=== PATIENT | female | born 1950 | race Caucasian/White ===

== ENCOUNTER 2017-10-13 11:55 | Emergency (ER) | payer BC, MEDICARE ==
[~2017-10-13] VITALS: Ht 167.6 cm; Wt 111.1 kg
[2017-10-13] MEDS ORDERED: ALBUTEROL/IPRATROPIUM 3 ML NEB NEB ONE (12:15)
--- NOTE | 2017-10-13 12:20 | ER Report ---
History and Physical Time Seen By MD: 12:00 Hx. of Stated Complaint: SHORT OF BREATH FOR 1 MONTH. VISITING FROM [place] HPI/ROS CHIEF COMPLAINT: Cough, shortness of breath HISTORY OF PRESENT ILLNESS: 67-year-old female patient presents to the emergency room with complaint of cough, shortness of breath. Patient states this been going on for the last 3 days. Patient states that she is visiting from [place] and has been here approximately one month. She states that she has not been employed down but has to be propped up on some pills. She states when she lays down she has significant amounts of wheezing in her chest. She denies having any fevers, chills, nausea, vomiting or diarrhea. Patient states that her nephew was ill for approximately one week with a cold and now her brother and her come down the same thing. She states that she is taken some NyQuil for that, however she vomited up. She did take some ibuprofen this morning. REVIEW OF SYSTEMS: Respiratory: As noted above Cardiovascular: No chest pain, no palpitations. Gastrointestinal: No vomiting, no abdominal pain. Musculoskeletal: No back pain. Allergies: Coded Allergies: No Known Drug Allergies (Unverified , 10/13/17) Home Meds Active Scripts Acetic Acid/Hydrocortisone (HYDROCORTISON-ACETIC ACID SOLN) 10 Ml Drops, 5 GTT OT Q6H, #1 BOTTLE Prov:DORIAN REIS 10/13/17 Albuterol Sulfate (VENTOLIN HFA) 18 Gm Inh, 2 PUFF INH Q4-6H Y for SHORTNESS OF BREATH, #1 INH Prov:DORIAN REIS 10/13/17 Prednisone (PREDNISONE) 20 Mg Tablet, 20 MG PO BID, #10 TAB Prov:DORIAN REIS 10/13/17 Azithromycin 250 Mg Tab (AZITHROMYCIN 250 MG TAB) 250 Mg Tablet, 1 TAB PO QDAY, #6 TAB Take 2 tabs today and then 1 tab a day until gone. Prov:DORIAN REIS 10/13/17 Past Medical/Surgical History Patient has a past medical history of asthma, shoulder fracture. Patient has surgical history of right shoulder surgery. Reviewed Nurses Notes: Yes Constitutional Vital Sign - Last 24 Hours 10/13/17 10/13/17 10/13/17 10/13/17 12:00 12:05 12:18 12:18 Temp 98.5 Pulse 100 84 Resp 20 19 B/P (MAP) 171/76 Pulse Ox 90 93 O2 Delivery Room Air Nasal Cannula O2 Flow Rate 1.0 1.0 10/13/17 13:56 Pulse 73 B/P (MAP) 137/60 (85) Pulse Ox 94 O2 Delivery Room Air Physical Exam General Appearance: The patient is alert, has no immediate need for airway protection and no current signs of toxicity.. Respiratory: Chest is non tender, lungs are diminished to auscultation. Cardiac: regular rate and rhythm Gastrointestinal: Abdomen is soft and non tender, no masses, bowel sounds normal. Musculoskeletal: Neck: Neck is supple and non tender. Extremities have full range of motion and are non tender. Skin: No rashes or lesions. DIFFERENTIAL DIAGNOSIS: After history and physical exam differential diagnosis was considered for shortness of breath including but not limited to pulmonary infectious process, COPD, asthma, pulmonary embolus and congestive heart failure. Medical Decision Making Data Points Result Diagram: 10/13/17 1220 10/13/17 1220 Laboratory Hematology Test 10/13/17 12:20 10/13/17 12:24 Red Blood Count 4.85 M/uL (4.17-5.56) Mean Corpuscular Volume 99.6 fL (80.0-96.0) Mean Corpuscular Hemoglobin 34.0 pg (26.0-33.0) Mean Corpuscular Hemoglobin Concent 34.2 g/dL (32.0-36.0) Red Cell Distribution Width 13.5 % (11.5-14.5) Mean Platelet Volume 7.5 fL (7.2-11.1) Neutrophils (%) (Auto) 70.5 % (39.4-72.5) Lymphocytes (%) (Auto) 17.4 % (17.6-49.6) Monocytes (%) (Auto) 6.2 % (4.1-12.4) Eosinophils (%) (Auto) 4.8 % (0.4-6.7) Basophils (%) (Auto) 1.1 % (0.3-1.4) Nucleated RBC Relative Count (auto) 0.0 /100WBC Neutrophils # (Auto) 5.1 K/uL (2.0-7.4) Lymphocytes # (Auto) 1.2 K/uL (1.3-3.6) Monocytes # (Auto) 0.4 K/uL (0.3-1.0) Eosinophils # (Auto) 0.3 K/uL (0.0-0.5) Basophils # (Auto) 0.1 K/uL (0.0-0.1) Nucleated RBC Absolute Count (auto) 0.00 K/uL Sodium Level 138 mmol/L (137-145) Potassium Level 4.3 mmol/L (3.5-5.0) Chloride Level 102 mmol/L (98-107) Carbon Dioxide Level 27 mmol/L (22-31) Blood Urea Nitrogen 9 mg/dl (7-18) Creatinine 0.80 mg/dl (0.52-1.04) Glomerular Filtration Rate Calc > 60.0 Random Glucose 107 mg/dl (75-110) Calcium Level 9.3 mg/dl (8.4-10.2) Total Bilirubin 1.2 mg/dl (0.2-1.3) Aspartate Amino Transf (AST/SGOT) 23 U/L (0-35) Alanine Aminotransferase (ALT/SGPT) 40 U/L (0-56) Alkaline Phosphatase 131 U/L (0-126) Troponin I 0.021 ng/ml Total Protein 7.6 gm/dl (6.3-8.2) Albumin 4.1 g/dl (3.5-5.0) Influenza Type A Antigen Negative (NEGATIVE) Influenza Type B Antigen Negative (NEGATIVE) Chemistry Test 10/13/17 12:20 10/13/17 12:24 White Blood Count 7.2 k/uL (4.5-11.0) Red Blood Count 4.85 M/uL (4.17-5.56) Hemoglobin 16.5 g/dL (12.0-16.0) Hematocrit 48.3 % (34.0-47.0) Mean Corpuscular Volume 99.6 fL (80.0-96.0) Mean Corpuscular Hemoglobin 34.0 pg (26.0-33.0) Mean Corpuscular Hemoglobin Concent 34.2 g/dL (32.0-36.0) Red Cell Distribution Width 13.5 % (11.5-14.5) Platelet Count 303 K/uL (150-450) Mean Platelet Volume 7.5 fL (7.2-11.1) Neutrophils (%) (Auto) 70.5 % (39.4-72.5) Lymphocytes (%) (Auto) 17.4 % (17.6-49.6) Monocytes (%) (Auto) 6.2 % (4.1-12.4) Eosinophils (%) (Auto) 4.8 % (0.4-6.7) Basophils (%) (Auto) 1.1 % (0.3-1.4) Nucleated RBC Relative Count (auto) 0.0 /100WBC Neutrophils # (Auto) 5.1 K/uL (2.0-7.4) Lymphocytes # (Auto) 1.2 K/uL (1.3-3.6) Monocytes # (Auto) 0.4 K/uL (0.3-1.0) Eosinophils # (Auto) 0.3 K/uL (0.0-0.5) Basophils # (Auto) 0.1 K/uL (0.0-0.1) Nucleated RBC Absolute Count (auto) 0.00 K/uL Glomerular Filtration Rate Calc > 60.0 Calcium Level 9.3 mg/dl (8.4-10.2) Total Bilirubin 1.2 mg/dl (0.2-1.3) Aspartate Amino Transf (AST/SGOT) 23 U/L (0-35) Alanine Aminotransferase (ALT/SGPT) 40 U/L (0-56) Alkaline Phosphatase 131 U/L (0-126) Troponin I 0.021 ng/ml Total Protein 7.6 gm/dl (6.3-8.2) Albumin 4.1 g/dl (3.5-5.0) Influenza Type A Antigen Negative (NEGATIVE) Influenza Type B Antigen Negative (NEGATIVE) EKG/Imaging EKG Interpretation 12 lead EKG: Rhythm: normal sinus rhythm [place]: normal QRS: normal ST segments: normal Prolonged QT of 410 ms Imaging CHEST PA AND LAT HISTORY: Respiratory distress COMPARISON: None FINDINGS: Cardiomediastinal contours: Normal Lungs and pleura: Normal Bones/soft tissues: Normal Other findings: None significant IMPRESSION: 1. Normal chest Report Dictated By: Ponce Albert MD at 10/13/2017 1:33 PM Report E-Signed By: Ponce Albert MD at 10/13/2017 1:34 PM ED Course/Re-evaluation ED Course Patient was managed exam room, history and physical were obtained. Differential diagnoses were considered. On examination patient has diminished lung sounds. A CBC, CMP, EKG, troponin, chest x-ray were done. Patient had a normal EKG, troponin was negative, CBC was unremarkable, CMP was also unremarkable. Patient did receive a DuoNeb here in the emergency room which significantly improved her breathing. Patient was 86% on room air when arriving here to the emergency room. However after the DuoNeb she was up to 95% on room air. Patient states she does have some difficulty with exercise causing wheezing as well with alcohol consumption. I believe that she likely having a worsening of her reactive airway disease caused by a viral syndrome. I discussed with patient. We 'll go ahead and put her on prednisone as well as albuterol inhaler. Due to the steroid I will go ahead and place her on azithromycin in case there is a underlying infection. I discussed with patient who verbalized understanding and agreement with plan. Decision to Disposition Date: Oct 13, 2017 Decision to Disposition Time: 13:57 Depart Departure Latest Vital Signs Vital Signs Date Time Temp Pulse Resp B/P (MAP) Pulse Ox O2 Delivery O2 Flow Rate FiO2 10/13/17 13:56 73 137/60 (85) 94 Room Air 10/13/17 12:18 1.0 10/13/17 12:18 19 10/13/17 12:00 98.5 Impression: Primary Impression: Viral syndrome Additional Impression: Otitis externa, acute noninfectious Condition: Improved Disposition: HOME OR SELF-CARE New Scripts Acetic Acid/Hydrocortisone (HYDROCORTISON-ACETIC ACID SOLN) 10 Ml Drops 5 GTT OT Q6H, #1 BOTTLE Prov: DORIAN REIS 10/13/17 Albuterol Sulfate (VENTOLIN HFA) 18 Gm Inh 2 PUFF INH Q4-6H Y for SHORTNESS OF BREATH, #1 INH Prov: DORIAN REIS 10/13/17 Prednisone (PREDNISONE) 20 Mg Tablet 20 MG PO BID, #10 TAB Prov: DORIAN REIS 10/13/17 Azithromycin 250 Mg Tab (AZITHROMYCIN 250 MG TAB) 250 Mg Tablet 1 TAB PO QDAY, #6 TAB Take 2 tabs today and then 1 tab a day until gone. Prov: DORIAN REIS 10/13/17 Patient Instructions: Viral Syndrome (ED) Additional Instructions: Increase fluid intake. Get plenty of rest. Follow up with a primary care provider in the next week. Return to the ER if condition worsens. Take Tylenol or Ibuprofen as needed for pain or fevers. Problem Qualifiers Additional Impression: Otitis externa, acute noninfectious Noninfectious otitis externa type: unspecified noninfectious type Laterality : left Qualified Codes: H60.502 - Unspecified acute noninfective otitis externa, left ear DORIAN REIS Oct 13, 2017 12:20
--- NOTE | 2017-10-13 12:26 | EKG ---
FACILITY: [facility] - [place] PATIENT NAME: GRACIELA CHAUDHARY : [id number] MR: [id number] V: [id number] EXAM DATE: ORDERING PHYSICIAN: DORIAN REIS TECHNOLOGIST: VIJI Cuenca Reason : RESP Blood Pressure : / mmHG Vent. Rate : 089 BPM Atrial Rate : 089 BPM P-R Int : 146 ms QRS Dur : 082 ms QT Int : 410 ms P-R-T Axes : 072 074 077 degrees QTc Int : 498 ms Sinus rhythm Possible left atrial enlargement Prolonged QT Abnormal ECG Baseline artifact in several leads - repeat if needed No previous ECGs available Confirmed by SHAWN COLLAZO ([id number]) on 10/13/2017 12:58:33 PM Referred By: DORIAN Confirmed By:SHAWN COLLAZO
[2017-10-13 12:34] LABS: PLATELET COUNT, AUTOMATED 303 K/uL (150-450)
--- NOTE | 2017-10-13 13:38 | RADIOLOGY IMAGING REPORT ---
FACILITY: [facility] PATIENT NAME: Ignacia Pool : 1950 MR: [id number] V: [id number] EXAM DATE: ORDERING PHYSICIAN: DORIAN REIS TECHNOLOGIST: Location: [facility] [place] Patient: Ignacia Pool : 1950 Visit/Account:[id number] Date of Sevice: 10/13/2017 CHEST PA AND LAT HISTORY: Respiratory distress COMPARISON: None FINDINGS: Cardiomediastinal contours: Normal Lungs and pleura: Normal Bones/soft tissues: Normal Other findings: None significant IMPRESSION: 1. Normal chest Report Dictated By: Ponce Albert MD at 10/13/2017 1:33 PM Report E-Signed By: Ponce Albert MD at 10/13/2017 1:34 PM WSN:[id number]
[2017-10-13 13:56] VITALS: BP 137/60
[2017-10-13] MEDS ORDERED: PRED20TA6 PO (13:57)
[2017-10-13] MEDS ORDERED: ALB18R INH (13:57)
[2017-10-13] MEDS ORDERED: AZIT-18 PO (13:57)
[2017-10-13] MEDS ORDERED: [UNRECOGNIZED DRUG - CODE] OT (13:57)
== END 2017-10-13 14:09 | disposition home or self-care (01) ==
LOC: ER 11:55
DX: B34.9 Viral infection, unspecified (principal); H60.502 Unspecified acute noninfective otitis externa, left ear
CPT/HCPCS: 71046; 84484; 85025; 87502; 93005; 94640; 99284; J7620; 82040; 82247; 82310; 82374; 82435; 82565; 82947; 84075; 84132; 84155; 84295; 84450; 84460; 84520